=== PATIENT | female | born 1950 | race Caucasian/White ===

== ENCOUNTER 2019-06-13 16:03 | Emergency (ER) | payer OTHER ==
[~2019-06-13] VITALS: Ht 160 cm; Wt 80.7 kg
[2019-06-13] MEDS ORDERED: LIDOCAINE 1% 10 MG/ML, 20 ML MDV SUBCUT ONE (16:30)
[2019-06-13] MEDS ORDERED: BACITRACIN 1 GM OINT TP ONE (16:30)
[2019-06-13] MEDS ORDERED: DIPH-TET-PERTUS Vaccine 0.5 ML VIAL (ADACEL) I.M. ONE (16:30)
[2019-06-13 17:06] VITALS: BP_SYST 138
--- NOTE | 2019-06-13 18:20 | NUR ---
Patient to ER bed 04 to gown for evaluation. Side rails up.
--- NOTE | 2019-06-13 18:20 | NUR ---
ER at bedside examining patient.
--- NOTE | 2019-06-13 18:28 | NUR ---
MD Sahni is now suturing the pts right index finger open laceration. pt is stable and in good spirits. accompanied by .
[2019-06-13] MEDS ORDERED: LIDOCAINE 1%, 20 ML MDV 20 ML ONE (18:40)
--- NOTE | 2019-06-13 19:01 | NUR ---
RN has bandaged and splint the right middle finger per MD order and wrapped well. pt was given all her instructions and pt is ok to dc home.
--- NOTE | 2019-06-13 19:01 | NUR ---
Patient given written and verbal discharge instructions and verbalizes understanding. ER MD discussed with patient the results and treatment provided. Patient in stable condition. ID arm band removed. Rx of tylenol with codeine and neosporin given. Patient educated on pain management and to follow up with PMD. Pain Scale 0/10. Opportunity for questions provided and answered. Medication side effect fact sheet provided.
[2019-06-13 19:02] VITALS: BP_SYST 128
== END 2019-06-13 19:02 | disposition home or self-care (01) ==
LOC: SED 16:03
DX: S61.212A Laceration without foreign body of right middle finger without damage to nail, initial encounter (principal); W23.0XXA Caught, crushed, jammed, or pinched between moving objects, initial encounter; Y93.89 Activity, other specified; Y92.89 Other specified places as the place of occurrence of the external cause; Y99.8 Other external cause status
CPT/HCPCS: 12002; 73130; 99283; J2001